=== PATIENT | male | born 1970 | race Caucasian/White ===

== ENCOUNTER 2016-07-07 16:53 | Emergency (ER) | payer BC ==
[~2016-07-07] VITALS: Ht 180.3 cm; Wt 134.0 kg
[~2016-07-07 16:53] MED LIST: CIPR-9 PO; HYDR-3533 PO; METR-1 PO; PRED10 PO
[2016-07-07 17:14] VITALS: BP 130/89; PULSE 138; RESP 18; TEMP 100.1; O2SAT 97
[2016-07-07] MEDS ORDERED: DIAZEPAM 5 MG TAB PO ONE (17:30)
[2016-07-07] MEDS ORDERED: IBUPROFEN 600 MG TAB PO ONE (17:30)
[2016-07-07] MEDS ORDERED: COLCHICINE 0.6 MG TAB PO ONE (17:30)
--- NOTE | 2016-07-07 17:34 | PD ---
HPI Chief Complaint: Pain: Acute or Chronic Time Seen by Provider: 17:19 Travel History International Travel<30 days: No Contact w/Intl Traveler<30days: No Traveled to known affect area: No History of Present Illness HPI 45yo M with PMH of buerger's disease, chronic renal insufficiency, gout presents to the ED with c/o right sided lower back pain for 3 days. He does not remember any particular inciting events but pain is sharp, localized in right lower back and worst with movement. Denies any fall, weakness, incontinence, fever, IVDA, chest pain, sob, n/v, abdominal pain, or numbness. Pt also c/o bilateral knee and ankle pain since yesterday that feels like his gout flare up. Pt was on a medication for gout and ran out 1.5 months ago due to insurance issues. PFSH Past Medical History Gout: Yes Past Surgical History Body Medical Devices: GOUT Social History Alcohol Use: No Tobacco Use: No Substance Use: No Allergies-Medications (Allergen,Severity, Reaction): Coded Allergies: No Known Allergies (Verified , 07/07/16) Reported Meds & Prescriptions Reported Meds & Active Scripts Active Reported Aleve (Naproxen Sodium) 220 Mg Tab 440 Mg PO BID PRN Review of Systems Except as stated in HPI: all other systems reviewed are Neg Physical Exam Narrative GENERAL: 45yo M in moderate distress. SKIN: Warm and dry. HEAD: Atraumatic. Normocephalic. CARDIOVASCULAR: Regular rate and rhythm. No murmur appreciated. RESPIRATORY: No accessory muscle use. Clear to auscultation. Breath sounds equal bilaterally. GASTROINTESTINAL: Abdomen soft, non-tender, nondistended. No rebound tenderness or guarding. BACK: No midline ttp thoracic or lumbar spine. +TTP right paraspinal L2-L5. MUSCULOSKELETAL: No obvious deformities. No clubbing. No cyanosis. No edema. NEUROLOGICAL: Awake and alert. No obvious cranial nerve deficits. Motor grossly within normal limits. Normal speech. Bilateral knees and ankles are warm to touch and tender but no erythema. DP 2+. PSYCHIATRIC: Appropriate mood and affect; insight and judgment normal. Data Data Last Documented VS Vital Signs Date Time Temp Pulse Resp B/P Pulse Ox O2 Delivery O2 Flow Rate FiO2 07/07/16 21:47 130 18 93 07/07/16 17:14 100.1 130/89 Orders Colchicine (Colchicine) (07/07/16 17:30) Diazepam (Valium) (07/07/16 17:30) Ibuprofen (Motrin) (07/07/16 17:30) Prednisone (Deltasone) (07/07/16 18:00) Morphine Inj (Morphine Inj) (07/07/16 18:15) Complete Blood Count With Diff (07/07/16 18:02) Basic Metabolic Panel (Bmp) (07/07/16 18:02) Urinalysis - C+S If Indicated (07/07/16 18:02) Blood Culture (07/07/16 18:30) Knee, Ltd (1 Or 2vws) (07/07/16 ) Knee, Ltd (1 Or 2vws) (07/07/16 ) Sodium Chlor 0.9% 1000 Ml Inj (Ns 1000 M (07/07/16 18:45) Mri L Spine W/O Contrast (07/07/16 ) C-Reactive Protein (Crp) (07/07/16 18:37) Westergren Sedimentation Rate (07/07/16 18:37) Lactic Acid Sepsis Protocol (07/07/16 19:26) Methylprednisolone So Succ Inj (Solumedr (07/07/16 21:30) Ketorolac Inj (Toradol Inj) (07/07/16 21:30) Labs Laboratory Tests Test 07/07/16 07/07/16 07/07/16 18:25 19:45 20:35 White Blood Count 11.1 TH/MM3 Red Blood Count 3.96 MIL/MM3 Hemoglobin 11.7 GM/DL Hematocrit 34.9 % Mean Corpuscular Volume 88.1 FL Mean Corpuscular Hemoglobin 29.5 PG Mean Corpuscular Hemoglobin 33.5 % Concent Red Cell Distribution Width 13.2 % Platelet Count 273 TH/MM3 Mean Platelet Volume 8.1 FL Neutrophils (%) (Auto) 83.7 % Lymphocytes (%) (Auto) 7.8 % Monocytes (%) (Auto) 7.1 % Eosinophils (%) (Auto) 1.0 % Basophils (%) (Auto) 0.4 % Neutrophils # (Auto) 9.3 TH/MM3 Lymphocytes # (Auto) 0.9 TH/MM3 Monocytes # (Auto) 0.8 TH/MM3 Eosinophils # (Auto) 0.1 TH/MM3 Basophils # (Auto) 0.0 TH/MM3 CBC Comment AUTO DIFF Differential Comment AUTO DIFF CONFIRMED Platelet Estimate NORMAL Platelet Morphology Comment NORMAL Red Cell Morphology Comment NORMAL Erythrocyte Sedimentation Rate 97 mm/hr Sodium Level 140 MEQ/L Potassium Level 4.6 MEQ/L Chloride Level 106 MEQ/L Carbon Dioxide Level 23.4 MEQ/L Anion Gap 11 MEQ/L Blood Urea Nitrogen 42 MG/DL Creatinine 2.60 MG/DL Estimat Glomerular Filtration 27 ML/MIN Rate Random Glucose 96 MG/DL Calcium Level 9.0 MG/DL C-Reactive Protein 9.40 MG/DL Lactic Acid Level 0.9 mmol/L Urine Collection Type CLEAN CATCH Urine Color YELLOW Urine Turbidity CLEAR Urine pH 5.5 Urine Specific [place] 1.015 Urine Protein 100 mg/dL Urine Glucose (UA) NEG mg/dL Urine Ketones TRACE mg/dL Urine Occult Blood MOD Urine Nitrite NEG Urine Bilirubin NEG Urine Leukocyte Esterase NEG Urine RBC 0-3 /hpf Urine WBC 0-2 /hpf Urine Bacteria RARE /hpf Microscopic Urinalysis Comment CULT NOT INDICATED Urine Collection Time 2034 [facility] Medical Decision Making Medical Screen Exam Complete: Yes Emergency Medical Condition: Yes Interpretation(s) EKG: Sinus tachycardia at 130bpm. Normal axis. No ST segment elevation or depression. Q wave in V1, V2, III. Differential Diagnosis Musculoskeletal pain vs. gout flare vs. infectious cause Narrative Course 45yo M with right lower back pain that is very musculoskeletal in nature. Will give valium 5mg PO. Pt refused ibuprofen and states he has chronic kidney disease and cant take it. Will give morphine 4mg IM. Pt also refused colchicine. Will give prednisone 60mg PO. Given that pt is tachycardic with mildly elevated temperature, will do labs. Labs reviewed, mild leukocytosis at 11.1. ESR is elevated at 97. Creatinine is elevated at 2.60 but pt has chronic kidney disease. C-reactive protein is elevated at 9.40. Lactic acid is 0.9. UA negative. Xray of right knee showed arthritic changes and small suprapatellar effusion. Xray left knee showed arthritic changes and a suprapatellar effusion. MRI LS showed disc degeneration and broad mild protrusion at L5-S1 without significant associated anatomic compromise. Low suspicion of septic joint but pt is persistently tachycardic so I advised empiric antibiotics after arthrocentesis. Pt is refusing arthrocentesis of his knees. Pt given methylprednisolone 60mg IV and toradol 30mg IV. Pt is signing out AMA and will be given prescription of antibiotics, prednisone and ibuprofen. I explained that there may be an infection causing his joint pain and I want to admit him with IV antibiotics and further testing. Pt is refusing to stay. AMA: The risks of leaving against medical advice without further evaluation treatment were discussed with the patient. These risks include cardiac dysfunction, cardiac dysrhythmia, possible heart attack, possible stroke or . The patient indicated understanding of these risks and appeared to have the capacity to make this decision. Diagnosis Primary Impression: Joint pain of lower extremity Patient Instructions: General Instructions Departure Forms: Tests/Procedures Additional Instructions: Please follow up with your PMD or return to the ED if you change your mind. Med/Other Pt SpecificInfo: Prescription(s) given Scripts Cephalexin (Keflex)500 Mg [id number] Mg PO Q6H 7 Days Ref 0 Prov:Aria Villalba DO 07/07/16 Ibuprofen 600 Mg [id number] Mg PO Q8HR PRN (PAIN) 5 Days Ref 0 Prov:Aria Villalba DO 07/07/16 Prednisone 50 Mg Tab50 Mg PO DAILY 5 Days Ref 0 Prov:Aria Villalba DO 07/07/16 Disposition: 07 AGAINST MEDICAL ADVICE Condition: Stable Aria Villalba DO Jul 07, 2016 17:34
[2016-07-07] MEDS ORDERED: NAPR220T95 PO (17:37)
[2016-07-07] MEDS ORDERED: predniSONE 20 MG TAB PO ONE (18:00)
[2016-07-07] MEDS ORDERED: MORPHINE SULFATE 4 MG/ML INJ IM ONE (18:15)
[2016-07-07 18:40] LABS: AUTOMATED NEUTROPHIL # 9.3 TH/MM3 (1.8-7.7); BASOPHIL % 0.4 % (0.0-2.0); EOSINOPHIL # 0.1 TH/MM3 (0-0.4); HEMATOCRIT 34.9 % (39.0-51.0); LYMPH % 7.8 % (9.0-44.0); LYMPHOCYTE # 0.9 TH/MM3 (1.0-4.8); MEAN CELL VOLUME 88.1 FL (80.0-100.0); MEAN CORPUSCULAR HEMOGLOBIN 29.5 PG (27.0-34.0); MEAN CORPUSCULAR HGB CONC 33.5 % (32.0-36.0); MONO % 7.1 % (0.0-8.0); NEUT % 83.7 % (16.0-70.0); PLATELET COUNT 273 TH/MM3 (150-450); RED BLOOD COUNT 3.96 MIL/MM3 (4.50-5.90); RED CELL DISTRIBUTION WIDTH 13.2 % (11.6-17.2); WHITE BLOOD COUNT 11.1 TH/MM3 (4.0-11.0)
[2016-07-07] MEDS ORDERED: SODIUM CHLOR 0.9% 1000 ML INJ 1,000 ML IV ONE (18:45)
[2016-07-07 18:51] LABS: HEMO FLAGS AUTO DIFF; POTASSIUM 4.6 MEQ/L (3.5-5.1)
[2016-07-07 18:54] LABS: BICARBONATE 23.4 MEQ/L (21.0-32.0)
[2016-07-07 19:18] LABS: PLATELET ESTIMATE SMEAR NORMAL (NORMAL); PLATELET MORPHOLOGY NORMAL (NORMAL); SCAN/DIFF AUTO DIFF CONFIRMED
--- NOTE | 2016-07-07 20:38 | RADHPO ---
EXAM DATE/TIME: 07/07/2016 19:21 [facility] COMPARISON: No previous studies available for comparison. INDICATIONS : Patient states right knee pain, no known trauma. MEDICAL HISTORY : Gout SURGICAL HISTORY : None. ENCOUNTER: Initial ACUITY: 3 days PAIN SCORE: 7/10 LOCATION: Right Knee FINDINGS: There is no evidence of fracture or dislocation. Mineralization is normal. There is a suprapatellar e ffusion. There are osteophytes most prominent in the patellofemoral compartment. CONCLUSION: Arthritic changes and small suprapatellar effusion Ole Diggs MD on July 07, 2016 at 20:36 Board Certified Radiologist. This report was verified electronically.
--- NOTE | 2016-07-07 20:42 | RADHPO ---
EXAM DATE/TIME: 07/07/2016 19:22 [facility] COMPARISON: No previous studies available for comparison. INDICATIONS : Patient states left knee pain, no known trauma. MEDICAL HISTORY : Gout SURGICAL HISTORY : None. ENCOUNTER: Initial ACUITY: 3 days PAIN SCORE: 7/10 LOCATION: Left Knee FINDINGS: There are small osteophytes in the medial and patellofemoral compartments. A suprapatellar effusion i s present. There is no evidence of fracture or dislocation. No destructive changes are noted. CONCLUSION: Arthritic changes and joint effusion. No acute bony findings. Ole Diggs MD on July 07, 2016 at 20:40 Board Certified Radiologist. This report was verified electronically.
[2016-07-07 20:43] LABS: GLUCOSE,URINE NEG (NEG); KETONE, URINE TRACE mg/dL (NEG); NITRITE,URINE NEG (NEG); PH, URINE 5.5 (5.0-8.5)
[2016-07-07 20:51] LABS: BLOOD, URINE MOD (NEG)
[2016-07-07 20:53] LABS: BACTERIA, URINE RARE /hpf; METHOD OF COLLECTION CLEAN CATCH; RBC, URINE 0-3 /hpf (0-3); URINE COLOR YELLOW (YELLW/STRAW); WBC, URINE 0-2 /hpf (0-5)
[2016-07-07 20:54] LABS: COMMENT (UR) CULT NOT INDICATED; CULTURE IF INDICATED CULT NOT INDICATED
--- NOTE | 2016-07-07 21:04 | RADHPO ---
EXAM DATE/TIME: 07/07/2016 20:17 [facility] COMPARISON: No previous studies available for comparison. INDICATIONS : Low right back pain. MEDICAL HISTORY : Buerger's disease. SURGICAL HISTORY : None. ENCOUNTER: Initial ACUITY: 3 day PAIN SCORE: 7/10 LOCATION: Right low back. TECHNIQUE: Multiplanar multisequence MRI of the lumbar spine was performed without contrast. FINDINGS: There is slight anterolisthesis of L5 relative to S1. There is moderate disc dehydration at L5-S1. Mi nimal dehydration of L3-4. There is no evidence of significant canal or foraminal compromise. Minimal broad dorsal disc protrusion at L5-S1 is slightly eccentric to the right without significant associa anel canal or foraminal compromise. No protrusions elsewhere. No evidence of paraspinal mass or hemato ma. CONCLUSION: Disc degeneration and broad mild protrusion at L5-S1 without significant associated anatomic compromi se. Ole Diggs MD on July 07, 2016 at 20:59 Board Certified Radiologist. This report was verified electronically.
[2016-07-07] MEDS ORDERED: methylPREDNISolone SOD SUCC 125 MG/2 ML VIAL IVP ONE (21:30)
[2016-07-07] MEDS ORDERED: KETOROLAC TROMETHAMINE 30 MG/ML (IVP) VIAL IV PUSH ONE (21:30)
[2016-07-07 21:47] VITALS: PULSE 130; RESP 18; O2SAT 93
[2016-07-07] MEDS ORDERED: IBUP-232 PO (21:58)
[2016-07-07] MEDS ORDERED: CEPH-460 PO (21:58)
[2016-07-07] MEDS ORDERED: PRED50 PO (21:58)
[2016-07-07 22:45] VITALS: RESP 18
--- NOTE | 2016-07-08 16:37 | EKG ---
Date Performed: 07/07/2016 Time Performed: 17:29:52 PTAGE: 45 years EKG: Sinus tachycardia Possible septal infarct - age undetermined Abnormal ECG PREVIOUS TRACING : 06/15/2004 12.22 Compared to the previous tracing, sinus tachycardia is new DOCTOR: Mio Reeves Interpretating Date/Time 07/08/2016 16:35:33
== END 2016-07-07 22:59 | disposition left against medical advice (07) ==
LOC: PHEFT 16:53
DX: M79.606 Pain in leg, unspecified (principal); M10.9 Gout, unspecified; I73.1 Thromboangiitis obliterans [Buerger's disease]; N18.9 Chronic kidney disease, unspecified; R00.0 Tachycardia, unspecified; M51.36 Other intervertebral disc degeneration, lumbar region
CPT/HCPCS: 72148; 73560; 80048; 81001; 83605; 85025; 85652; 86140; 87040; 93005; 96361; 96372; 96374; 96375; 99284; J1885; J2270; J2930; J7030; J7512

== ENCOUNTER 2017-05-20 16:36 | Emergency (ER) | payer BC ==
[~2017-05-20] VITALS: Ht 180.3 cm; Wt 144.1 kg
[~2017-05-20 16:36] MED LIST changes: +CEPH-460 PO; -CIPR-9 PO; -HYDR-3533 PO; +IBUP-232 PO; -METR-1 PO; +NAPR220T95 PO; -PRED10 PO; +PRED50 PO
[2017-05-20 16:59] VITALS: BP 138/72; PULSE 97; RESP 16; TEMP 98.7; O2SAT 95
[2017-05-20] MEDS ORDERED: CARV6.252 PO (17:11)
[2017-05-20] MEDS ORDERED: ULOR80TA2 (17:11)
[2017-05-20] MEDS ORDERED: LOSA50TA PO (17:11)
[2017-05-20] MEDS ORDERED: LEVOFLOXACIN 500 MG TAB PO ONE (17:30)
[2017-05-20] MEDS ORDERED: KETOROLAC TROMETHAMINE 30 MG/ML (IVP) VIAL IVP ONE (17:30)
[2017-05-20] MEDS ORDERED: ONDANSETRON HCL 4 MG/2 ML VIAL IVP ONE (17:30)
[2017-05-20] MEDS ORDERED: SODIUM CHLORIDE 0.9% FLUSH 10 ML FLUSH IV FLUSH PRN (17:30)
[2017-05-20] MEDS ORDERED: metroNIDAZOLE 500 MG INJ 100 ML IV ONE (17:30)
[2017-05-20] MEDS ORDERED: CIPR-9 PO (17:38)
[2017-05-20] MEDS ORDERED: TRAM50 PO (17:38)
[2017-05-20] MEDS ORDERED: METR-1 PO (17:38)
--- NOTE | 2017-05-20 17:38 | PD ---
HPI Chief Complaint: Abdominal Pain Time Seen by Provider: 17:21 Travel History International Travel<30 days: No Contact w/Intl Traveler<30days: No Traveled to known affect area: No History of Present Illness HPI 46-year-old male complains of nausea and left low quadrant abdominal pain. Patient states that the symptoms started this morning. Patient states the pain in cramping pain localized to left lower quadrant of the abdomen. Patient denies any pain radiation. Patient states that he has nausea but no vomiting or diarrhea. Patient denies any dysuria or frequency. Patient denies any fever chills. Patient denies any back pain. Patient has history of diverticulitis in the past. Patient also has history hypertension, gout. PFSH Past Medical History Cardiovascular Problems: Yes (htn on meds) Diminished Hearing: No Gout: Yes Genitourinary: Yes (KOCH'S DISEASE) Hypertension: Yes Past Surgical History Body Medical Devices: GOUT Social History Alcohol Use: No Tobacco Use: No Substance Use: No Allergies-Medications (Allergen,Severity, Reaction): Coded Allergies: No Known Allergies (Verified Adverse Reaction, Unknown, 05/20/17) Reported Meds & Prescriptions Reported Meds & Active Scripts Active Ultram (Tramadol HCl) 50 Mg Tab 50 Mg PO Q6H PRN Flagyl (Metronidazole) 500 Mg Tab 500 Mg PO TID Cipro (Ciprofloxacin HCl) 500 Mg Tab 500 Mg PO BID Reported Uloric (Febuxostat) 80 Mg Tab Losartan (Losartan Potassium) 50 Mg Tab 50 Mg PO DAILY Carvedilol 6.25 Mg Tab 6.25 Mg PO BID Review of Systems General / Constitutional: No: Fever Eyes: No: Visual changes HENT: No: Headaches Cardiovascular: No: Chest Pain or Discomfort Respiratory: No: Shortness of Breath Gastrointestinal: Positive: Nausea, Abdominal Pain Genitourinary: No: Dysuria Musculoskeletal: No: Pain Skin: No Rash Neurologic: No: Weakness Psychiatric: No: Depression Endocrine: No: Polydipsia Hematologic/Lymphatic: No: Easy Bruising Physical Exam Narrative GENERAL: Well-nourished, well-developed patient. SKIN: Focused skin assessment warm/dry. HEAD: Normocephalic. EYES: No scleral icterus. No injection or drainage. NECK: Supple, trachea midline. No JVD or lymphadenopathy. CARDIOVASCULAR: Regular rate and rhythm without murmurs, gallops, or rubs. RESPIRATORY: Breath sounds equal bilaterally. No accessory muscle use. GASTROINTESTINAL: Abdomen soft, nondistended. has moderate tenderness on palpation left lower quadrant of the abdomen. No rebound tenderness. No mass. MUSCULOSKELETAL: No cyanosis, or edema. BACK: Nontender without obvious deformity. No CVA tenderness. Neurologic exam normal. Data Data Last Documented VS Vital Signs Date Time Temp Pulse Resp B/P (MAP) Pulse Ox O2 Delivery O2 Flow Rate FiO2 05/20/17 17:50 98 Room Air 05/20/17 16:59 98.7 97 16 138/72 (94) Orders Orders Urinalysis - C+S If Indicated (05/20/17 16:46) Complete Blood Count With Diff (05/20/17 17:28) Comprehensive Metabolic Panel (05/20/17 17:28) Iv Access Insert/Monitor (05/20/17 17:28) Ecg Monitoring (05/20/17 17:28) Oximetry (05/20/17 17:28) Ondansetron Inj (Zofran Inj) (05/20/17 17:30) Sodium Chloride 0.9% Flush (Ns Flush) (05/20/17 17:30) Ketorolac Inj (Toradol Inj) (05/20/17 17:30) Metronidazole 500 Mg Inj (Flagyl 500 Mg (05/20/17 17:30) Levofloxacin (Levaquin) (05/20/17 17:30) Labs Laboratory Tests Test 05/20/17 17:41 White Blood Count 14.9 TH/MM3 Red Blood Count 4.34 MIL/MM3 Hemoglobin 13.1 GM/DL Hematocrit 38.4 % Mean Corpuscular Volume 88.7 FL Mean Corpuscular Hemoglobin 30.3 PG Mean Corpuscular Hemoglobin Concent 34.1 % Red Cell Distribution Width 12.9 % Platelet Count 232 TH/MM3 Mean Platelet Volume 8.3 FL Neutrophils (%) (Auto) 81.6 % Lymphocytes (%) (Auto) 9.5 % Monocytes (%) (Auto) 6.7 % Eosinophils (%) (Auto) 1.1 % Basophils (%) (Auto) 1.1 % Neutrophils # (Auto) 12.1 TH/MM3 Lymphocytes # (Auto) 1.4 TH/MM3 Monocytes # (Auto) 1.0 TH/MM3 Eosinophils # (Auto) 0.2 TH/MM3 Basophils # (Auto) 0.2 TH/MM3 CBC Comment DIFF FINAL Differential Comment Urine Collection Type CLEAN CATCH Urine Color YELLOW Urine Turbidity CLEAR Urine pH 5.5 Urine Specific [place] 1.020 Urine Protein 100 mg/dL Urine Glucose (UA) NEG mg/dL Urine Ketones NEG mg/dL Urine Occult Blood SMALL Urine Nitrite NEG Urine Bilirubin NEG Urine Leukocyte Esterase NEG Urine RBC 0-3 /hpf Urine WBC 0-2 /hpf Microscopic Urinalysis Comment CULT NOT INDICATED Blood Urea Nitrogen 33 MG/DL Creatinine 2.00 MG/DL Random Glucose 101 MG/DL Total Protein 7.0 GM/DL Albumin 3.8 GM/DL Calcium Level 8.8 MG/DL Alkaline Phosphatase 108 U/L Aspartate Amino Transf (AST/SGOT) 18 U/L Alanine Aminotransferase (ALT/SGPT) 38 U/L Total Bilirubin 1.0 MG/DL Sodium Level 138 MEQ/L Potassium Level 4.0 MEQ/L Chloride Level 108 MEQ/L Carbon Dioxide Level 20.8 MEQ/L Anion Gap 9 MEQ/L Estimat Glomerular Filtration Rate 36 ML/MIN [facility] Medical Decision Making Medical Screen Exam Complete: Yes Emergency Medical Condition: Yes Medical Record Reviewed: Yes Interpretation(s) 1829 PM. CBC WBC 14.9. 81 neutrophil. BUN 33. Creatinine 2.0. UA is negative. Differential Diagnosis Differential diagnoses including diverticulitis, UTI, pyelonephritis, nephrolithiasis, musculoskeletal. Narrative Course 46-year-old male with left low quadrant abdominal pain and nausea. History of diverticulitis in the past. Most likely acute diverticulitis this time. History of renal insufficiency. Toradol 30 mg IV. Zofran 4 mg IV. Levaquin 500 mg by mouth. Flagyl 500 mg IV. Diagnosis Primary Impression: Acute diverticulitis Additional Impressions: Chronic kidney disease Chronic kidney disease (CKD) stage G3b/A1, moderately decreased glomerular filtration rate (GFR) between 30-44 mL/min/1.73 square meter and albuminuria creatinine ratio less than 30 mg/g Patient Instructions: General Instructions Additional Instructions: Take medications as directed. Follow-up with personal physician. Return if persistent problem or worse. Med/Other Pt SpecificInfo: Prescription(s) given Scripts Tramadol (Ultram) 50 Mg Tab 50 MG PO Q6H Y for PAIN, #12 TAB 0 Refills Prov: Norman Mcleod MD 05/20/17 Metronidazole (Flagyl) 500 Mg Tab 500 MG PO TID for Infection, #30 TAB 0 Refills Prov: Norman Mcleod MD 05/20/17 Ciprofloxacin (Cipro) 500 Mg Tab 500 MG PO BID for Infection, #20 TAB 0 Refills Prov: Norman Mcleod MD 05/20/17 Disposition: 01 DISCHARGE HOME Condition: Stable Norman Mcleod MD May 20, 2017 17:38
[2017-05-20 17:45] LABS: AUTOMATED NEUTROPHIL # 12.1 TH/MM3 (1.8-7.7); BASOPHIL # 0.2 TH/MM3 (0-0.2); BASOPHIL % 1.1 % (0.0-2.0); EOSINOPHIL # 0.2 TH/MM3 (0-0.4); EOSINOPHIL % 1.1 % (0.0-4.0); HEMATOCRIT 38.4 % (39.0-51.0); HEMO FLAGS DIFF FINAL; LYMPH % 9.5 % (9.0-44.0); LYMPHOCYTE # 1.4 TH/MM3 (1.0-4.8); MEAN CELL VOLUME 88.7 FL (80.0-100.0); MEAN CORPUSCULAR HEMOGLOBIN 30.3 PG (27.0-34.0); MEAN CORPUSCULAR HGB CONC 34.1 % (32.0-36.0); MONO % 6.7 % (0.0-8.0); NEUT % 81.6 % (16.0-70.0); PLATELET COUNT 232 TH/MM3 (150-450); RED BLOOD COUNT 4.34 MIL/MM3 (4.50-5.90); RED CELL DISTRIBUTION WIDTH 12.9 % (11.6-17.2); WHITE BLOOD COUNT 14.9 TH/MM3 (4.0-11.0)
[2017-05-20 17:46] LABS: BLOOD, URINE SMALL (NEG); GLUCOSE,URINE NEG (NEG); KETONE, URINE NEG (NEG); NITRITE,URINE NEG (NEG); PH, URINE 5.5 (5.0-8.5)
[2017-05-20 17:47] LABS: METHOD OF COLLECTION CLEAN CATCH; URINE COLOR YELLOW (YELLW/STRAW)
[2017-05-20 17:50] VITALS: O2SAT 98
[2017-05-20 17:50] LABS: COMMENT (UR) CULT NOT INDICATED; CULTURE IF INDICATED CULT NOT INDICATED; RBC, URINE 0-3 /hpf (0-3); WBC, URINE 0-2 /hpf (0-5)
[2017-05-20 17:53] LABS: CHLORIDE 108 MEQ/L (98-107); SODIUM (NA) 138 MEQ/L (136-145)
[2017-05-20 17:57] LABS: ANION GAP 9 MEQ/L (5-15); BICARBONATE 20.8 MEQ/L (21.0-32.0); BLOOD UREA NITROGEN 33 MG/DL (7-18)
[2017-05-20 18:00] LABS: ALT (GPT) 38 U/L (12-78); AST (GOT) 18 U/L (15-37); GLOMERULAR FILTRATION RATE 36 ML/MIN (>89)
[2017-05-20 18:03] LABS: ALKALINE PHOSPHATASE 108 U/L (45-117)
[2017-05-20 19:11] VITALS: BP 124/61
== END 2017-05-20 19:18 | disposition home or self-care (01) ==
LOC: PHED 16:36
DX: K57.92 Diverticulitis of intestine, part unspecified, without perforation or abscess without bleeding (principal); N18.3 Chronic kidney disease, stage 3 (moderate); I12.9 Hypertensive chronic kidney disease with stage 1 through stage 4 chronic kidney disease, or unspecified chronic kidney disease; M1A.9XX0 Chronic gout, unspecified, without tophus (tophi); Z87.448 Personal history of other diseases of urinary system; Z87.19 Personal history of other diseases of the digestive system
CPT/HCPCS: 80053; 81001; 85025; 96374; 96375; 99284; J1885; J2405